=== PATIENT | female | born 1970 | race Caucasian/White ===

== ENCOUNTER 2021-08-24 08:31 | Emergency (ER) | payer OTHER ==
[~2021-08-24] VITALS: Ht 157.5 cm; Wt 75.3 kg
[2021-08-24] MEDS ORDERED: SODIUM CHLORIDE 0.9% 1000ML 1,000 ML IV STA (08:56)
[2021-08-24] MEDS ORDERED: SODIUM CHLORIDE 0.9% 250ML 250 ML IV ONE (09:00)
[2021-08-24] MEDS ORDERED: ONDANSETRON HCL INJ 2MG/ML 2ML 2 MG/ML VIAL ONE (09:01)
[2021-08-24] MEDS ORDERED: SODIUM CHLORIDE 0.9% 1000ML 1,000 ML ONE (09:01)
[2021-08-24] MEDS ORDERED: ONDANSETRON HCL INJ 2MG/ML 2ML 2 MG/ML VIAL IV STA (11:53)
== END 2021-08-24 12:21 | disposition short-term general hospital (02) ==
LOC: FSED 09:00
DX: K92.0 Hematemesis (principal); K92.1 Melena; D64.9 Anemia, unspecified; R53.1 Weakness; F32.A Depression, unspecified
CPT/HCPCS: 80076; 81003; 82553; 84484; 85025; 85379; 96374; 96376; 99284; J2405; J7030

== ENCOUNTER 2021-09-27 13:49 | Emergency (ER) | payer OTHER ==
[~2021-09-27] VITALS: Ht 157.5 cm; Wt 77.1 kg
[2021-09-27] MEDS ORDERED: LIDOCAINE HCL 1% LOCAL INJ 20 ML VIAL INJ ONE (15:00)
[2021-09-27] MEDS ORDERED: BACITRACIN ZINC 0.9GM TP ONE ×2 (15:00→15:18)
[2021-09-27] MEDS ORDERED: LIDOCAINE HCL 1% LOCAL INJ 20 ML VIAL ONE (15:18)
== END 2021-09-27 15:14 | disposition home or self-care (01) ==
LOC: FSED 14:02
DX: Z48.02 Encounter for removal of sutures (principal)
CPT/HCPCS: 96372; 99283; J2001; S0630